=== PATIENT | male | born 1945 | race African-American/Black ===

== ENCOUNTER 2023-11-08 11:13 | Inpatient (IN) | payer OTHER ==
[2023-11-08] MEDS ORDERED: ONDANSETRON *ODT* 4 MG TABLET SL PRN (12:05)
[2023-11-08] MEDS ORDERED: POLYETHYLENE GLYCOL (HEALTHYLAX) 3350 17 GM PACKET PO PRN (12:05)
[2023-11-08] MEDS ORDERED: BISMUTH SUBSALICYLATE 262 MG/15 ML BTL PO PRN (12:05)
[2023-11-08] MEDS ORDERED: NALOXONE HCL (KLOXXADO) 8 MG SPRAY NS PRN (12:05)
[2023-11-08] MEDS ORDERED: ACETAMINOPHEN 325 MG TABLET (FP) PO PRN (12:05)
[2023-11-08] MEDS ORDERED: guaiFENesin 600 MG TABLET.ER (FP) PO PRN (12:05)
[2023-11-08] MEDS ORDERED: MAG HYDROX/AL HYDROX/SIMETH 30 ML UNIT-DOSE CUP PO PRN (12:05)
[2023-11-08] MEDS ORDERED: LOPERAMIDE HCL 2 MG CAPSULE PO PRN (12:05)
[2023-11-08] MEDS ORDERED: NALOXONE HCL 0.4 MG/ML VIAL IM PRN (12:05)
[2023-11-08] MEDS ORDERED: MAGNESIUM HYDROX 2400MG/30ML ORAL SUSPENSION 30 ML CUP PO PRN (12:05)
[2023-11-08] MEDS ORDERED: IBUPROFEN 400 MG TABLET (FP) PO PRN (12:05)
[2023-11-08] MEDS ORDERED: BENZOCAINE/MENTHOL (CHLORASEPTIC ) LOZENGE MM PRN (12:05)
[2023-11-08] MEDS ORDERED: BENZONATATE 200 MG CAPSULE PO PRN (12:05)
[2023-11-08] MEDS ORDERED: LORazepam 1 MG TABLET PO PRN (12:05)
[2023-11-08 12:24] VITALS: BMI 28.6
[2023-11-08] MEDS: PRENATAL VITAMINS W/ FOLIC ACID TABLET (FP) PO SCH (12:44)
[2023-11-08] MEDS: IBUPROFEN 600 MG TABLET (FP) PO PRN (12:44)
[2023-11-08] MEDS: NICOTINE 14 MG/24 HOURS TOPICAL PATCH TD SCH (13:55)
[2023-11-08] MEDS: LORazepam 2 MG TABLET PO SCH (17:24)
[2023-11-08] MEDS: MELATONIN 5 MG TABLETS PO SCH (22:26)
[2023-11-08] MEDS: THIAMINE HCL 100 MG TABLET (FP) PO SCH (22:26)
[2023-11-08] MEDS: METHOCARBAMOL 500 MG TABLET PO PRN (22:26)
[2023-11-09] MEDS: methaDONE HCL 40 MG DISPERSABLE TABLET PO SCH (05:31)
[2023-11-09] MEDS: valACYclovir HCL 500 MG TABLET (FP) PO SCH (10:18)
[2023-11-09] MEDS: PNEUMOC 20-VAL CONJ-DIP CRM/PF 0.5 ML SYRINGE IM ONE (11:07)
[2023-11-09 11:46] LABS: HEMATOCRIT 37.8 % (35.4-49); HEMOGLOBIN 12.7 GM/dL (11.7-16.9); MCH 28.2 pg (25.7-33.7); MCHC 33.6 g/dl (32.0-35.9); MEAN CELL VOLUME 83.9 fl (80-96); MEAN PLT VOLUME 9.3 fl (7.5-11.1); PLATELET COUNT 192 10^3/uL (134-434); WHITE BLOOD COUNT 4.9 K/mm3 (4.0-10.0)
[2023-11-09 11:54] LABS: POTASSIUM 3.6 mmol/L (3.5-5.1)
[2023-11-09 12:01] LABS: ALBUMIN 3.8 g/dl (3.4-5.0); BLOOD UREA NITROGEN 9.6 mg/dL (7-18); CALCIUM 9.3 mg/dL (8.5-10.1)
[2023-11-09 12:03] LABS: TOT PROT 7.4 g/dl (6.4-8.2)
[2023-11-09] MEDS: LACTULOSE 20 GM/30 ML UDC (FOR ORAL USE ONLY) PO SCH (13:03)
[2023-11-09] MEDS: DICYCLOMINE HCL 10 MG CAPSULE PO PRN (17:24)
[2023-11-10] MEDS: LORazepam 1 MG TABLET PO SCH (05:33)
[2023-11-10] MEDS: PATIENT'S OWN MEDICATION (NON-FORMULARY) (Dolutegravir Sodium/Lamivudine [Dovato 50-300 Mg PO SCH (15:46)
[2023-11-10] MEDS: DOLUTEGRAVIR SODIUM 50 MG TABLET (NON-FORMULARY) PO SCH (17:20)
[2023-11-10] MEDS: lamiVUDine 150 MG TABLET PO SCH (17:21)
[2023-11-11] MEDS ORDERED: LORazepam 0.5 MG TABLET PO PRN
[2023-11-11] MEDS: LORazepam 0.5 MG TABLET PO SCH (05:33)
[2023-11-11] MEDS: hydrOXYzine PAMOATE 25 MG CAPSULE (FP) PO PRN (09:28)
[2023-11-11] MEDS: valACYclovir HCL 500 MG TABLET (FP) PO SCH (09:28)
[2023-11-12] MEDS: LORazepam 0.5 MG TABLET PO ONE (05:31)
[2023-11-12 10:03] VITALS: BP 128/78; PULSE 70; RESP 18; TEMP 98.1
== END 2023-11-12 10:35 | disposition home or self-care (01) | DRG 897 ==
LOC: YASAS 11:13 → Y6N 12:02
PROVIDERS: ADMIT Allergy & Immunology; ATTEND Surgery
PROC: HZ2ZZZZ Detoxification Services for Substance Abuse Treatment (ICD-10-PCS; principal; 2023-11-08)
DX: F10.230 Alcohol dependence with withdrawal, uncomplicated (principal); F11.20 Opioid dependence, uncomplicated; B20 Human immunodeficiency virus [HIV] disease; E72.20 Disorder of urea cycle metabolism, unspecified; F17.210 Nicotine dependence, cigarettes, uncomplicated; M17.0 Bilateral primary osteoarthritis of knee; R76.8 Other specified abnormal immunological findings in serum; Z86.19 Personal history of other infectious and parasitic diseases; Z79.899 Other long term (current) drug therapy
CPT/HCPCS: 36415; 71046-TC-FY; 80053; 80307; 82140; 85027; 86593; 86780; 90677; 93005; 93010